=== PATIENT | male | born 2000 | race Caucasian/White ===

== ENCOUNTER 2019-05-21 11:33 | Emergency (ER) | payer MEDICAID ==
[~2019-05-21] VITALS: Ht 188 cm; Wt 59.0 kg
--- NOTE | 2019-05-21 11:49 | NUR ---
PT IS IN ROOM #2A. DR DOAN EVALUATED THE PT.
[2019-05-21] MEDS ORDERED: ALBUTEROL SULFATE 2.5 MG/3 ML NEBU NEB ONE (12:15)
[2019-05-21] MEDS ORDERED: IPRATROPIUM BROMIDE 0.5 MG/2.5 ML NEBU NEB ONE (12:15)
[2019-05-21] MEDS ORDERED: ALBUTEROL SULFATE 2.5 MG/3 ML NEBU ONE (12:39)
[2019-05-21] MEDS ORDERED: IPRATROPIUM BROMIDE 0.5 MG/2.5 ML NEBU ONE (12:39)
--- NOTE | 2019-05-21 13:00 | NUR ---
PT WAS EVALUATED BY DR. DOAN. PT WAS D/C'd TO HOME. D/C INSTRUCTIONS GIVEN TO THE PT.
[2019-05-21 13:02] VITALS: BP 128/68
== END 2019-05-21 13:02 | disposition home or self-care (01) ==
LOC: ER 11:33
DX: J20.9 Acute bronchitis, unspecified (principal)
CPT/HCPCS: 71046; A4663; J3590

== ENCOUNTER 2019-10-31 15:27 | Emergency (ER) | payer SELFPAY ==
[~2019-10-31] VITALS: Ht 190.5 cm; Wt 63.5 kg
--- NOTE | 2019-10-31 16:10 | NUR ---
patient seen by physician for cough.
--- NOTE | 2019-10-31 16:15 | NUR ---
xray done at the bedside
--- NOTE | 2019-10-31 16:29 | NUR ---
dr chawla in the room explaining results and discharge orders. discharge information given and prescriptions given.
[2019-10-31 16:35] VITALS: BP 121/66
== END 2019-10-31 16:36 | disposition home or self-care (01) ==
LOC: ER 15:29
DX: R09.82 Postnasal drip (principal); F17.210 Nicotine dependence, cigarettes, uncomplicated; R05 Cough
CPT/HCPCS: 71045; A4663